=== PATIENT | female | born 1980 | race Hispanic/Latino ===

== ENCOUNTER 2020-03-27 10:00 | Emergency (ER) | payer OTHER ==
[~2020-03-27] VITALS: Ht 172.7 cm; Wt 66.8 kg
[2020-03-27] MEDS ORDERED: IBUPROFEN600 MG PO (10:39)
[2020-03-27] MEDS ORDERED: HYDROCO/APAP1 TA9 PO (10:39)
[2020-03-27] MEDS ORDERED: PENICILLN VK500 MG PO (10:39)
[2020-03-27 11:05] VITALS: BP 121/68
== END 2020-03-27 11:05 | disposition home or self-care (01) ==
LOC: ED 10:00
DX: K02.9 Dental caries, unspecified (principal); K04.7 Periapical abscess without sinus; F17.210 Nicotine dependence, cigarettes, uncomplicated

== ENCOUNTER 2020-04-01 11:40 | Emergency (ER) | payer OTHER ==
[~2020-04-01] VITALS: Ht 172.7 cm; Wt 65.0 kg
[~2020-04-01 11:40] MED LIST: HYDROCO/APAP1 TA9 PO; IBUPROFEN600 MG PO; PENICILLN VK500 MG PO
[2020-04-01] MEDS ORDERED: CLINDAMYCIN300 M1 PO (11:55)
[2020-04-01] MEDS ORDERED: HYDROCO/APAP1 TA9 PO (11:55)
[2020-04-01 12:10] VITALS: BP 103/62
== END 2020-04-01 12:10 | disposition home or self-care (01) ==
LOC: ED 11:40
DX: K03.81 Cracked tooth (principal); F17.210 Nicotine dependence, cigarettes, uncomplicated

== ENCOUNTER 2021-02-06 09:30 | Emergency (ER) | payer OTHER ==
[~2021-02-06] VITALS: Ht 172.7 cm; Wt 70.5 kg
[~2021-02-06 09:30] MED LIST changes: +CLINDAMYCIN300 M1 PO
[2021-02-06 11:38] LABS: URINE BILIRUBIN - DIPSTICK NEGATIVE (NEGATIVE); URINE BLOOD DIPSTICK LARGE (NEGATIVE); URINE COLOR YELLOW; URINE GLUCOSE - DIPSTICK NEGATIVE (NEGATIVE); URINE KETONE NEGATIVE (NEGATIVE); URINE LEUK ESTERASE NEGATIVE (NEGATIVE); URINE PROTEIN - DIPSTICK NEGATIVE (NEG-TRACE)
[2021-02-06 11:42] LABS: URINE NITRITE - DIPSTICK NEGATIVE (Negative)
[2021-02-06 11:45] LABS: HCG SERUM/URINE (NEG/POS) NEGATIVE (NEGATIVE)
[2021-02-06 12:02] LABS: URINE RBC 50-100 RBC/hpf (0-5); URINE SQUAMOUS EPITHELIAL CELL FEW EPI/hpf (0-FEW)
[2021-02-06] MEDS ORDERED: KEFLEX500 MG PO (12:14)
[2021-02-06 12:20] VITALS: BP 110/64
== END 2021-02-06 12:20 | disposition home or self-care (01) ==
LOC: ED 09:30
PROVIDERS: Emergency Medicine
DX: J06.9 Acute upper respiratory infection, unspecified (principal); F17.210 Nicotine dependence, cigarettes, uncomplicated; Z20.822 Contact with and (suspected) exposure to COVID-19